=== PATIENT | female | born 1975 ===

== ENCOUNTER 2021-08-02 05:52 | Day surgery (SDC) | payer OTHER ==
[~2021-08-02 05:52] MED LIST: COZAAR50 MG PO; HYDROCHLOROTH12.5 MG; OMEGA3 PO; TOPROL XL50 M1 PO; VITAMIN D PO
[2021-08-02] MEDS ORDERED: PERCOCET 5-3251 EACH PO (10:01)
== END 2021-08-02 14:05 | disposition home or self-care (01) ==
LOC: CIR.AMB 05:52
PROVIDERS: ATTEND Surgery
DX: E21.0 Primary hyperparathyroidism (principal); Z20.822 Contact with and (suspected) exposure to COVID-19